=== PATIENT | male | born 2000 | race Caucasian/White ===

== ENCOUNTER 2023-10-13 20:45 | Emergency (ER) | payer BC, SELFPAY ==
--- NOTE | ~2023-10-13 | CT_ITS ---
EXAMINATION: CT HEAD WITHOUT CONTRAST CLINICAL INFORMATION: Headache status-post trauma. COMPARISON: None available. TECHNIQUE: Contiguous axial imaging was performed from the skull base to vertex without intravenous administration of contrast. Multiplanar reformatted images are submitted. This CT examination was performed using dose optimization techniques as appropriate, variously including the following: *Automated exposure control *Adjustment of mA and/or kV according to patient size (this includes techniques or standardized protocols for targeted exams where dose is matched to indication/reason for exam; i.e. extremities or head) *Use of iterative reconstruction technique DLP: 565.96 mGy-cm (head and cervical spine) FINDINGS: There is no acute intracranial hemorrhage or evidence of territorial infarction. No abnormal mass effect or midline shift is seen. Martinez to white matter differentiation is well preserved. There is no abnormal attenuation within the brain parenchyma. The ventricles are normal in size. No extra-axial fluid collections are identified. The calvarium and scalp soft tissues are normal. The middle ear cavity and mastoid air cells are clear. The visualized paranasal sinuses are clear. CT/CT cervical spine wo IV con IMPRESSION: No acute intracranial pathology. EXAMINATION: CT CERVICAL SPINE WITHOUT CONTRAST CLINICAL INFORMATION: Neck pain status-post trauma. COMPARISON: None available. TECHNIQUE: Contiguous axial imaging was performed through the cervical spine without intravenous administration of contrast. Multiplanar reformatted images are submitted. This CT examination was performed using dose optimization techniques as appropriate, variously including the following: *Automated exposure control *Adjustment of mA and/or kV according to patient size (this includes techniques or standardized protocols for targeted exams where dose is matched to indication/reason for exam; i.e. extremities or head) *Use of iterative reconstruction technique DLP: As above FINDINGS: Vertebral body heights and alignment are normal. The disc spaces are well-maintained. No acute fracture or spondylolisthesis is seen. A tiny limbus vertebra is incidentally seen anterior to the C5 upper endplate. The posterior elements are intact. There is no prevertebral soft tissue swelling. The dens is intact. The bilateral lung apices are clear. IMPRESSION: Unremarkable examination. Fleischner guidelines were followed. Electronically signed by: Donovan Dunne MD 10/13/2023 10:50 PM EDT Workstation: [id number]
--- NOTE | ~2023-10-13 | CT_ITS ---
EXAMINATION: CT HEAD WITHOUT CONTRAST CLINICAL INFORMATION: Headache status-post trauma. COMPARISON: None available. TECHNIQUE: Contiguous axial imaging was performed from the skull base to vertex without intravenous administration of contrast. Multiplanar reformatted images are submitted. This CT examination was performed using dose optimization techniques as appropriate, variously including the following: *Automated exposure control *Adjustment of mA and/or kV according to patient size (this includes techniques or standardized protocols for targeted exams where dose is matched to indication/reason for exam; i.e. extremities or head) *Use of iterative reconstruction technique DLP: 565.96 mGy-cm (head and cervical spine) FINDINGS: There is no acute intracranial hemorrhage or evidence of territorial infarction. No abnormal mass effect or midline shift is seen. Martinez to white matter differentiation is well preserved. There is no abnormal attenuation within the brain parenchyma. The ventricles are normal in size. No extra-axial fluid collections are identified. The calvarium and scalp soft tissues are normal. The middle ear cavity and mastoid air cells are clear. The visualized paranasal sinuses are clear. CT/CT head/brain wo IV con IMPRESSION: No acute intracranial pathology. EXAMINATION: CT CERVICAL SPINE WITHOUT CONTRAST CLINICAL INFORMATION: Neck pain status-post trauma. COMPARISON: None available. TECHNIQUE: Contiguous axial imaging was performed through the cervical spine without intravenous administration of contrast. Multiplanar reformatted images are submitted. This CT examination was performed using dose optimization techniques as appropriate, variously including the following: *Automated exposure control *Adjustment of mA and/or kV according to patient size (this includes techniques or standardized protocols for targeted exams where dose is matched to indication/reason for exam; i.e. extremities or head) *Use of iterative reconstruction technique DLP: As above FINDINGS: Vertebral body heights and alignment are normal. The disc spaces are well-maintained. No acute fracture or spondylolisthesis is seen. A tiny limbus vertebra is incidentally seen anterior to the C5 upper endplate. The posterior elements are intact. There is no prevertebral soft tissue swelling. The dens is intact. The bilateral lung apices are clear. IMPRESSION: Unremarkable examination. Fleischner guidelines were followed. Electronically signed by: Donovan Dunne MD 10/13/2023 10:50 PM EDT Workstation: [id number]
[2023-10-13 20:50] VITALS: BP 103/72; PULSE 71; RESP 20; TEMP 36.6; O2SAT 98; BMI 19.0
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
[2023-10-13 23:16] VITALS: BP 102/57; PULSE 64; RESP 18; TEMP 36.6; O2SAT 99
== END 2023-10-13 23:18 | disposition home or self-care (01) ==
PROVIDERS: Emergency Provider Emergency Medicine Emergency Medical Services
DX: S06.0X0A Concussion without loss of consciousness, initial encounter (principal); V86.69XA Passenger of other special all-terrain or other off-road motor vehicle injured in nontraffic accident, initial encounter; L23.7 Allergic contact dermatitis due to plants, except food; L03.116 Cellulitis of left lower limb; L03.115 Cellulitis of right lower limb; Y93.89 Activity, other specified; Y92.89 Other specified places as the place of occurrence of the external cause; Y99.9 Unspecified external cause status
CPT/HCPCS: 70450; 72125; 99284

== ENCOUNTER 2024-06-02 13:14 | Emergency (ER) | payer BC, SELFPAY ==
--- NOTE | ~2024-06-02 | XR_ITS ---
EXAMINATION: XR KNEE, LEFT CLINICAL INFORMATION: swelling heard crack COMPARISON: None available. TECHNIQUE: Four views of the left knee. FINDINGS: No fracture, dislocation, or suspicious bone lesion. Normal bone mineralization. Bone island in the posterior tibial metaphysis. Normal alignment. Joint spaces are preserved. No significant arthropathy. There is a tiny suprapatellar joint effusion. There is prepatellar soft tissue swelling. XR/XR knee LT 4V IMPRESSION: 1. No acute bony abnormalities. 2. Tiny joint effusion. 3. Prepatellar soft tissue swelling. Electronically signed by: Chivo Schmidt MD 06/02/2024 02:23 PM EDT
[2024-06-02 13:30] VITALS: BP 104/58; PULSE 60; RESP 19; TEMP 36.6; O2SAT 98; BMI 19.0
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
[2024-06-02] MEDS: Ibuprofen 600 MG TABLET PO (17:02)
[2024-06-02 17:11] VITALS: BP 104/58; PULSE 60; RESP 19; TEMP 36.6; O2SAT 98
--- OUTSIDE RECORDS SUMMARY | 2024-06-02 18:35 | XMS_ITS | Encounter Summary ---
Author Organization [facility] Address [address] [place] [address] Phone Care Team Providers Care Latcher Name Role Phone Greg Zelaya MD Primary Care Provider [phone] Encounter Details Date Type Department Care Team (Late st Contact Info) Description 07/08/2017 Conversion Encounter [facility] [address] [place] [address] Greg Zelaya MD [address] [place] [address] Social History Tobacco Use Types Packs/Day Years Used Date Smoking Tobacco: Never Assessed Sex and Gender Information Value Date Recorded Sex Assigned at Not on file Legal Sex Male 6:20 PM EDT Gender Identity Not on file Sexual Orientation Not on file documented as of this encounter Plan of Treatment Not on file documented as of this encounter Visit Diagnoses Not on filedocumented in this encounter Care Teams Latcher Relationship Specialty Start Date End Date Greg Zelaya MD [address] [place] [address] PCP - General 06/27/17 02/03/24 documented as of this encounter
--- OUTSIDE RECORDS SUMMARY | 2024-06-02 18:35 | XMS_ITS | Data Portability ---
Author Organization [facility] [address] Address [address] [place] [address] Assessment No assessment recorded. Plan of Treatment Reminders Order Date Submit Date Provider Last Modified By Organization Details Last Modified Time Details Appointments None recorded. Lab rapid strep group A, throat 2022 023 [email or web address] [address] [facility], [place], [address], 3 12:04:34 streptococc us group A, culture, throat 2022 023 [place] [facility], [address] [place] [address], [place], [address], 3 12:06:18 Referral None recorded. Procedures None recorded. Surgeries None recorded. Imaging None recorded. Medication Orders benzonatate 200 mg capsule 2023 024 [facility] #[id number], [address] [place], [address], 4 10:21:18 Claritin-D 12 Hour 5 mg-120 mg tablet,exte nded release 2023 024 [facility] #[id number], [address] [place], [address], 4 10:21:18 Flonase Allergy Relief 50 mcg/actuati on nasal spray,suspe nsion 2023 024 [facility] #[id number], [address] [place], [address], 10:21:17 Patient TargetsNo targets recorded. Patient Instructions Encounter Date Encounter Id Patient Instructions Last Modified By Organization Details Last Modified Time 03/14/2022 [id number] sore throat: car e instructions [email or web address] Not available 03/14/2022 12:04:34 06/06/2023 [id number] cough: care instructions [email or web address] Not available 06/06/2023 10:21:15 Reason for Referral None Reported. Results Created Date Observation Date Name Description Value Unit Range Abnormal Flag Note LastModifiedBy Organization Detail LastModifiedTime 03/14/1903/17/2022 BETA STREP GP A CULTU RE beta strep gp A culture NEGATI VE Refer ence Range : Negat gurvinder Not Available [facility] ([facility]) [address] [facility], [place], [address], 03/17/2022 12:06:18 03/14/1903/14/2022 rapid strep group A, throa t Unknown Analyte Normal = Negati ve Not Available [address], [address], 03/14/2022 11:14:23 03/14/1903/14/2022 rapid strep group A, throa t Unknown Analyte negati ve Not Available [address] [place] [address], [phone], 03/14/2022 11:14:23 Result Notes None recorded. Problems Name Problem SNOMED Code Status Onset Date Resolution Date Notes Provider Name and Address Organization Details Recorded Time Viral upper respiratory tract infection 087011456 Active 2023 KRISTIN ROSEN NP [address] [place], [address], [place] - [facility] 4 10:19:46 Cough 49298512 Active 2023 KRISTIN ROSEN NP [address] [place], [address], [place] - [facility] 4 10:19:51 Attention deficit hyperactivity disorder 919525758 Active 2022 GERTRUDIS moore PA - [employer] [facility] 3 11:17:14 Problem Notes None recorded. Medical Equipment None Reported. Allergies No known drug allergies Medications Name Sig Start Date Stop Date Status Note LastModified by Organization Details LastModified Time benzonatate 200 mg capsule Take 1 capsule 3 times a day by oral route for 10 days. 2023 active Not Available Not Available Not Avai lable oseltamivir 75 mg capsule TAKE 1 CAPSULE BY MOUTH TWICE A DAY FOR 5 DAYS 03/14 completed Not Available Not Available Not Available Claritin-D 12 Hour 5 mg-120 mg tablet,exte nded release Take 1 tablet every 12 hours by oral route for 7 days. 2023 active Not Available Not Available Not Avai lable Flonase Allergy Relief 50 mcg/actuati on nasal spray,suspe nsion [place] 1 spray every day by intranasa l route for 10 days. 2023 active Not Available Not Available Not Avai lable Vitals Date Recorded Body height Body mass index (BMI) Body mass index (BMI) Percentile per age and sex Body weight Body temperature Respiratory rate Heart rate Oxygen saturation Oxygen saturation in Arterial blood by Pulse oximetry Systolic blood pressure Diastolic blood pressure Provider Name and Address Organization Details Last Updated DateTime 4 180.34 cm 20.2 kg/m2 11 % 92992.8 9 g 98.6 [degF] 16 /min 58 /min 95 % 95 % 116 mm[Hg] 76 mm[Hg] Aparna Reyes [place] [facility] 4 10:14:06 Date Recorded Body height Body mass index (BMI) Percentile per age and sex Body mass index (BMI) Body weight Body temperature Respiratory rate Heart rate Oxygen saturation Oxygen saturation in Arterial blood by Pulse oximetry Systolic blood pressure Diastolic blood pressure Provider Name and Address Organization Details Last Updated DateTime 3 180.34 cm 8 % 19.5 kg/m2 31550.9 3 g 98.1 [degF] 18 /min 77 /min 97 % 97 % 121 mm[Hg] 84 mm[Hg] GERTRUDIS Wright PA - [facility] 11:19:39 Social History Question Answer Notes LastModified by Organizat ion Details LastModified Time Tobacco Smoking Status Current Some Day Smoker JAMES Judd - [facility] 06/06/2023 10:11:41 What Is Your Level Of Alcohol Consumption? Occasional Information not available 06/06/2023 Are You Currently Employed? Yes Information not available 06/06/2023 Which Illicit Or Recreational Drugs Have You Used? Tammiejuana Information not available 06/06/2023 Have You Had A Flu Shot This Season? No Information not available 06/06/2023 If No, Would You Like A Flu Shot Today? A/P Information not available 06/06/2023 What Is Your Water Source? City Information not available 03/14/2022 What Is Your Heat Source? Gas Information not available 03/14/2022 Have You Had Direct Contact, Or Contact During Intimacy, With Monkeypox Rash, Scabs, Or Body Fluids From A Person With Monkeypox? No Information not available 03/14/2022 What Was The Date Of Your Most Recent Tobacco Screening? 06/06/2023 Information not available 06/06/2023 Do You Use Any Illicit Or Recreational Drugs? Yes Marijuana Information not available 03/14/2022 Have You Recently Traveled Abroad? No Information not available 03/14/2022 Are You Currently In School? No Information not available 06/06/2023 Do You Or Have You Ever Used Any Other Forms Of Tobacco Or Nicotine? Yes Vapes- Daily Information not available 03/14/2022 Sex: Unknown Functional Status None recorded. Mental Status None recorded. Family History Relationship Description Onset Age of this Age Resolved Age Notes LastModified by Organization Details LastModified Time Father No current problems or disability Not available 11:17:05 Mother No current problems or disability Not available 11:17:05 Medical History No medical history recorded. Immunizations Vaccine Type Date Status Note Provider Nam e and Address Organization Details Recorded Time HPV9 7 completed Aparna Eric null, PA - [facility] 06/06/2023 10:10:39 HPV9 8 completed Aparna Eric null, PA - [facility] 06/06/2023 10:10:39 IPV 4 completed Aparna Eric null, PA - [facility] 06/06/2023 10:10:39 Tdap 4 completed Aparna Eric null, PA - [facility] 06/06/2023 10:10:39 Hep A, ped/adol, 2 dose 8 completed Aparna Eric null, PA - [facility] 06/06/2023 10:10:39 Hep A, ped/adol, 2 dose 9 completed Aparna Eric null, PA - [facility] 06/06/2023 10:10:39 meningococcal MCV4P 4 completed Aparna Eric null, PA - [facility] 06/06/2023 10:10:39 meningococcal MCV4P 0 completed Aparna Eric null, PA - [facility] 06/06/2023 10:10:39 Past Encounters Encounter ID Performer Location Encounter Start Date Encounter Closed Date Diagnosis/Indication Diagnosis SNOMED-CT Code Diagnosis ICD10 Code Diagnosis Note [id number] [address] [place] [address] 06/05/2021 13:14:48 06/05/2021 14:42:40 [id number] [address] [place] [address] 11/17/2019 17:59:05 11/17/2019 19:33:01 [id number] [address] [place] [address] 12/30/2019 17:10:05 12/30/2019 19:48:57 [id number] José Antonio Lagunas MD [address] [place] [address] 03/14/2022 10:43:00 03/14/2022 12:07:27 Acute pharyngitis 552856870 J02.9 Dyspnea on exertion 6084 5006 R06.09 Short of breath and chest tightness when shoveling in snow is likely bronchocon striction/ reactive airways. You have an albuterol inhaler at home and I suggest you bring it with you. [id number] [place]STIN ROS[place] [address] [address] 06/06/2023 10:06:24 06/06/2023 10:22:12 Viral upper respiratory tract infection 239135446 J06.9 Cough 21125431 R05.9 Health Concerns Section Related Observation LastModified by Organization Detai ls LastModified Time None Recorded Concern Status LastModified by Organization Details LastModified Time None Recorded Advance Directives Directive None Recorded Payers Encounter Date Sequence Insurance Name Policy Number Policy Marrero Covered Member ID Marrero Member ID Guarantor Name 12/30/2019 1 [place] [facility] [id number] Yumiko A Montemagni [id number] 06/05/2021 1 [place] [facility] [id number] Yumiko A Montemagni [id number] 03/14/2022 1 [place] [facility] [id number] Yumiko A Montemagni [id number] 06/06/2023 1 [place] [facility] [id number] Yumiko A Montemagni [id number] [facility] Notes Date Note Type Note Provider Name and Address Organization Details Recorded Time 3 text/html Sore throatReported bypatient.Notes:States he used to need treatments for breathing as a child, no diagnosis of asthma but has an Albuterol inhaler at home. last night felt short of breath and tightness in chest when outside in cold weather shoveling. Sore throat started around that time José Antonio Lagunas MD [address] [place], [address], [facility] 03/14/2022 12:08:21 4 text/html CoughReported bypatient.source of patient informationInformation obtained from patient; Patient arrived at Urgent Care ambulatory Severity:mild Timing:sudden Context:non-smoker Associated Symptoms:no fever; no chills; no chest pain; no heartburn; no nausea; no vomiting; no wheezing; no post nasal drip cough, onset 1 say agono fever and no chillsnasal drainage , clear in the morningno sinus pain KRISTIN ROSEN NP [address] [place], [address], [facility] 06/06/2023 10:24:18
--- OUTSIDE RECORDS SUMMARY | 2024-06-02 18:35 | XMS_ITS | Encounter Summary ---
Author Organization [facility] Address [address] [place] [address] Phone Care Team Providers Care Trimmer Machine Name Role Phone Greg Zelaya MD Primary Care Provider Encounter Details Date Type Department Care Team (Late st Contact Info) Description 03/17/[address] [facility] Family Medicine [address] [place], [place] [id number] Family Medicine, Physician [address] [place], [place] [id number] Social History Tobacco Use Types Packs/Day Years [...] on filedocumented in this encounter Care Teams Trimmer Machine Relationship Specialty Start Date End Date Greg Zelaya MD [address] [place] [address] PCP - General 06/27/17 02/03/24 documented as of this encounter
--- OUTSIDE RECORDS SUMMARY | 2024-06-02 18:35 | XMS_ITS | Clinical Summary ---
Author Organization [facility] Address [address] [place] [address] Care Team Providers Care Hearing Care Practitioner Name Role Phone Pcp, No Primary Care Provider Unavailabl e Apryl Sosa MD Unavailable [phone] Ger Felton LPC Unavailable [phone] Allergies No known active allergies Medications Medication Sig Dispensed Refills Start Date End Date Status mirtazapine (REMERON) 30 MG tablet Take 30 mg by mouth nightly. Active OMEprazole (PriLOSEC) 20 MG capsule Take 20 mg by mouth every morning before breakfast. Active Active Problems Problem Noted Date Diagnosed Date Generalized anxiety disorder 06/17/2020 Family History Medical History Relation Name Comments Anxiety disorder Father Depression Father Anxiety disorder Paternal Grandfather Depression Paternal Grandfather Anxiety disorder Sister Depression Sister Relation Name Status Comments Father Paternal Grandfather Sister Social History Tobacco Use Types Packs/Day Years Used Date Smoking Tobacco: Never Assessed Sex and Gender Information Value Date Recorded Sex Assigned at Male 06/23/2020 3:00 PM EDT Gender Identity Male 06/23/2020 3:00 PM EDT Sexual Orientation Heterosexual (straight) 06/23 3:00 PM EDT Plan of Treatment Health Maintenance Due Date Last Done Comments Hepatitis C Virus Screening 2002 HIV Screening 07/13/2015 HPV Vaccines (1 - Male 3-dose series) 2017 DTaP/Tdap/Td Vaccines (1 - Tdap) 2021 Hepatitis B Vaccines (1 of 3 - 19+ 3-dose series) 2021 Influenza Vaccine 09/20/2023 12/04/2007, 12/10/2006 COVID-19 Vaccine ( - 2023- season) 2023 Influenza Vaccine Discontinued 12/04/2007, 12/10/2006 Pneumococcal Vaccine: Pediatric (0-5 Years) and At-Risk Patients (6 to 49 Years) Aged Out No longer eligible b ased on patient's age to complete this topic Care Teams Hearing Care Practitioner Relationship Specialty Start Date End Date Pcp, No PCP - General General Medicine 06/09/20 Apryl Sosa MD [address] [place] [address] [address] [place] [address] Consulting Provider Psychiatry, General 06/10/20 Ger Felton LPC [address] [place] [address] Securities Broker Clinical Social Work 06/23/20
--- OUTSIDE RECORDS SUMMARY | 2024-06-02 18:36 | XMS_ITS | Clinical Summary ---
Author Organization [facility] Address [address] [place] [address] Phone Care Team Providers Care Instrument Repair Specialist Name Role Phone Unavailable Primary Care Provider Unavailabl e Allergies No known active allergies Medications mirtazapine 7.5 MG tablet TAKE 1 TABLET BY MOUTH EVERYDAY AT BEDTIME 02/16/2020 Active Active Problems Problem Noted Date Diagnosed Date Generalized anxiety disorder 06/17/2020 Gastroesophageal reflux dise ase with esophagitis without hemorrhage 03/02/2020 Overview (03/15/2021): No showed at GI (02/2021) Marijuana abuse 09/09/2019 Overview (09/09/2019): Admitted 08/2019. Assessment & Plan (12/05/2019 4:40 PM EDT): Continue therapy. Influenza vaccine refused 04/18/2018 Assessment & Plan (12/05/2019 3:35 PM EDT): Discussed reasons for influenza vaccination to include prevention of this potential serious infection. Assessment & Plan (04/18/2018 3:38 PM EST): Discussed reasons for influenza vaccination to include prevention of this potential serious infection. ADHD (attention deficit hyperactivity disorder) 02/23/2015 Overview (04/14/2018): seen by Dr. Somers 03/06 Assessment & Plan (04/18/2018 4:10 PM EST): Doing well on current dosing and will see for next med check in 6 mos. Discussed eliminating electronics from the bedroom. Immunizations Immunization Administration Dates Next Due DTaP 10/24/2007, 4,01/21/2003,11/13,2002 HPV Vaccine 9 Valent 04/17/2017,03/22/2016 Hep A, ped/adol 04/18/2018,04/17/2017 Hep B, ped/adol 04/15/2003,2002,2002 Hib (PRP-T) 12/28/2003, 3,2002,09/18 IPV 10/24/2007, 4,2002,09/17 Influenza 12/10/2006 Influenza, injectable, quadrivalent 11/12/2010,0 10/04/2009 Influenza, injectable, quadr ivalent, preservative free 12/04/2007 Influenza, injectable, triva lent, preservative free 03/16/2004,12/21/2003 MMR 11/14/2006,08/10/2003 Meningococcal Conj (Menactra) MCV4P 12/05/2019,0 08/07/2013 Pneumococcal Conjugate 12/28/2003,2002,2002,09/17 Tdap 08/07/2013 Varicella 11/14/2006,08/10/2003 Family History Medical History Relation Name Comments Factor V Leiden deficiency Father H eterozygous Hodgkin's lymphoma Maternal Grandfather Cancer Maternal Grandmother No Known Problems Mother Alzheimer's disease Paternal Grandfather Stroke Paternal Grandmother Relation Name Status Comments Father Alive Father's Brother cousin with Factor V Leiden Maternal Grandfather Maternal Grandmother cancer Mother Alive Other Alive Siblings: 4 old er sisters are all quite healthy. no adhd among sibs or cousins. Paternal Grandfather Alive Paternal Grandmother Alive stroke and CHF, pacemaker. businessman, multiple careers. Social History Tobacco Use Types Packs/Day Years Used Date Smoking Tobacco: Never Smokeless Tobacco: Former Tobacco Cessation:Counseling Given: Yes Comments:Vaping Alcohol Use Standard Drinks/Week Comments Never 0 (1 standard drink = 0.6 oz pur e alcohol) Hunger/Food Answer Date Recorded In the last 12 months, did y ou or your family ever eat less than you felt you should because there wasn't enough money for food? No 12/05/2019 Stable Housing Answer Date Recorded Are you worried that in the next 2 months you may not have stable housing? No 12/05/2019 Transportation Concerns Answer Date Rec orded In the last 12 months, have you or your family ever had to go without healthcare because you didn't have a way to get there? No 12/05/2019 Hazards in Home Answer Date Recorded Think about the place you li ve. Do you have problems with any of the following? Pests (mice or roaches), mold, no/not working smoke detectors, water leaks, no window guards. No 2019 Financing Utilities Answer Date Recorde d In the last 12 months, has t he electric, gas, oil, or water company threatened to shut off your services in your home? No 12/05/2019 Safety at Home Answer Date Recorded Are you or your family worried about feeling saf e in your home? No 12/05/2019 Outside Support Answer Date Recorded Do you feel that you need mo re support from other people or programs to help you care for yourself or your family? No 12/05/2019 Understanding Health Concerns Answer Da te Recorded Do you need help understandi ng your or your child's healthcare needs (diagnosis, medications, plan, etc.)? No 12/05/2019 Financing Health Concerns Answer Date R ecorded In the last 12 months, was t here a time when your child needed to see a doctor or get medications or supplies but could not because of cost? No 12/05/2019 Missing School or Work Answer Date Cali rded Did you or your child miss s chool or work because of a health problem that could have been avoided? No 12/05/2019 Sex and Gender Information Value Date Recorded Sex Assigned at Not on file Legal Sex Male 6:20 PM EDT Gender Identity Not on file Sexual Orientation Not on file Last Filed Vital Signs Vital Sign Reading Time Taken Comments Blood Pressure 110/82 03/02/2020 9:36 AM EST Pulse 54 07/20/2017 12:00 AM EDT Temperature 36.8 ??C (98.3 ??F) 07/20/2017 12:00 AM E DT Respiratory Rate - - Oxygen Saturation 100% 07/20/2017 12:00 AM EDT Inhaled Oxygen Concentration - - Weight 62.8 kg (138 lb 8 oz) 03/02/2020 9:36 AM EST Height 178.4 cm (5' 10.25 ) 03/02/2020 9:[address] Body Mass Index 19.73 03/02/2020 9:36 AM EST Plan of Treatment Health Maintenance Due Date Last Done Comments Men B Vaccine (1 of 2 - Standard) 2018 DTaP,Tdap,and Td Vaccines (7 - Td or Tdap) 08/08/2023 08/07/2013, 10/24/2007, 12/28/2003, Additional history exists Influenza Vaccines (#1) 2023 11/13/19 11, 10/04/2009, 12/04/2007, Additional history exists COVID-19 Vaccine (2023-2 5 season) 2023 Hepatitis B Vaccines Completed 04/15/2003, 2002, 2002 HIB Vaccines Completed 12/28/2003, 04/2002, 2002, Additional history exists Pneumococcal Vaccine Completed 12/28/2003, 01/21/2003, 2002, Additional history exists MMR Vaccines Completed 11/14/2006, 08/10/2003 Varicella Vaccines Completed 11/14/2006, 08/10/2003 IPV Vaccines Completed 10/24/2007, 03/23, 2002, Additional history exists HPV Vaccines Completed 04/17/2017, 03/22/2016 Hepatitis A Vaccines Completed 04/18/2018, 04/17/19 18 Meningococcal Vaccine Completed 12/05/2019, 014 Insurance [facility] [place] [address] [facility]
== END 2024-06-02 17:15 | disposition home or self-care (01) ==
PROVIDERS: Emergency Provider Emergency Medicine Emergency Medical Services
DX: S89.92XA Unspecified injury of left lower leg, initial encounter (principal); M25.562 Pain in left knee; X58.XXXA Exposure to other specified factors, initial encounter; Y93.9 Activity, unspecified; Y92.9 Unspecified place or not applicable; Y99.8 Other external cause status
CPT/HCPCS: 29505; 73564; 99283; 99284

== ENCOUNTER → 2024-06-02 13:31 | Outpatient (BNV) | payer BC, SELFPAY | PROVIDERS: Visit Provider Radiology Diagnostic Radiology | DX: M25.462 Effusion, left knee (principal) | CPT/HCPCS: 73564 ==